=== PATIENT | male | born 1950 | race Hispanic/Latino ===

== ENCOUNTER 2020-12-11 11:17 | Inpatient (IN) | payer MEDICARE ==
[2020-12-11] MEDS ORDERED: Meclizine HCl 25 MG TAB PO PRN (20:47)
[2020-12-11] MEDS: valACYclovir 500 MG TAB PO SCH (21:01)
[2020-12-11] MEDS ORDERED: Carvedilol 6.25 MG TAB PO SCH (21:45)
[2020-12-12 00:09] LABS: SARS-CoV-2 NAA Rapid Test Not Detected (NotDetected)
[2020-12-12 06:21] LABS: #Basophils 0.1 thou/uL (0.0-0.2); #Eosinphils 0.2 thou/uL (0.0-0.7); #Lymphocytes 1.7 thou/uL (1.20-3.40); #Monocytes 0.8 thou/uL (0.11-0.59); #Neutrophils 6.8 thou/uL (1.40-6.50); %Basophils 0.9 % (0.0-1.0); %Eosinophils 1.8 % (0.0-10.0); %Lymphocytes 17.9 % (21.0-51.0); %Neutrophils 71.4 % (42.0-75.0); Hemoglobin 13.3 g/dL (14.0-18.0); Mean Corpuscular HGB CONC 31.3 g/dL (32.0-36.0); Mean Corpuscular Hemoglobin 29.3 pg (27.0-31.0); Mean Corpuscular Volume 93.7 fL (78.0-98.0); Mean Platelet Volume 8.1 fL (7.4-10.4); Platelet Count 357 thou/uL (130-400); RBC Distribution Width 13.4 % (11.5-14.5); Red Blood Cell (RBC) Count 4.54 mill/uL (4.70-6.10); White Blood Cell (WBC) Count 9.5 thou/uL (4.8-10.8)
[2020-12-12 06:40] LABS: ALT (SGPT) 119 U/L (8-55); AST (SGOT) 100 U/L (5-34); Albumin 3.2 g/dL (3.4-4.8); Alkaline Phosphatase 235 U/L (40-110); Anion Gap 13 mmol/L (10-20); BUN (Urea Nitrogen) 23 mg/dL (8.4-25.7); Bilirubin, Total 0.8 mg/dL (0.2-1.2); Calc. Creatinine Clearance 73 mL/min (70-130); Calcium 9.7 mg/dL (7.8-10.44); Carbon Dioxide 27 mmol/L (23-31); Chloride 101 mmol/L (98-107); Globulin 3.9 g/dL (2.4-3.5); Glucose 95 mg/dL (80-115); Potassium 4.5 mmol/L (3.5-5.1); Protein, Total 7.1 g/dL (5.8-8.1); Sodium 136 mmol/L (136-145)
[2020-12-12] MEDS: valACYclovir 500 MG TAB PO SCH ×3 (07:53→20:29)
[2020-12-12] MEDS: Carvedilol 6.25 MG TAB PO SCH ×2 (07:53→17:24)
[2020-12-12] MEDS: Aspirin 81 mg Enteric Coated Tablet PO SCH (07:54)
[2020-12-12] MEDS: Amlodipine 5 MG TAB PO SCH (07:54)
[2020-12-12] MEDS: Hydrochlorothiazide 25 MG TAB PO SCH (07:54)
[2020-12-12] MEDS: Clopidogrel Bisulfate 75 MG TAB PO SCH (07:54)
[2020-12-12] MEDS: Polyethylene Glycol 3350 17 GM Packet PO SCH (07:55)
[2020-12-12] MEDS ORDERED: hydrALAZINE 25 MG TAB PO PRN (12:34)
[2020-12-12] MEDS ORDERED: Carvedilol 6.25 MG TAB PO SCH (17:00)
[2020-12-12] MEDS: Lisinopril 10 MG TAB PO SCH (20:28)
[2020-12-13 06:35] LABS: ALT (SGPT) 111 U/L (8-55); AST (SGOT) 81 U/L (5-34); Alkaline Phosphatase 246 U/L (40-110); Bilirubin, Direct 0.4 mg/dL (0.1-0.3); Bilirubin, Total 0.7 mg/dL (0.2-1.2); CK (CPK) 1308 U/L (30-200); Protein, Total 6.7 g/dL (5.8-8.1)
[2020-12-13] MEDS: valACYclovir 500 MG TAB PO SCH ×3 (08:13→20:46)
[2020-12-13] MEDS: Polyethylene Glycol 3350 17 GM Packet PO SCH (08:13)
[2020-12-13] MEDS: Carvedilol 6.25 MG TAB PO SCH ×2 (08:14→17:12)
[2020-12-13] MEDS: Amlodipine 5 MG TAB PO SCH (08:15)
[2020-12-13] MEDS: Hydrochlorothiazide 25 MG TAB PO SCH (08:15)
[2020-12-13] MEDS: Aspirin 81 mg Enteric Coated Tablet PO SCH (08:15)
[2020-12-13] MEDS: Clopidogrel Bisulfate 75 MG TAB PO SCH (08:15)
[2020-12-13] MEDS ORDERED: Clopidogrel Bisulfate 75 MG TAB PO SCH (09:00)
[2020-12-13] MEDS ORDERED: Hydrochlorothiazide 25 MG TAB PO SCH (09:00)
[2020-12-13] MEDS ORDERED: Aspirin 81 mg Enteric Coated Tablet PO SCH (09:00)
[2020-12-13] MEDS ORDERED: Non-Formulary Item 1 EACH (Amlodipine [Norvasc] 10 MG Tab) PO SCH (09:00)
[2020-12-13] MEDS ORDERED: Polyethylene Glycol 3350 17 GM Packet PO SCH (09:00)
[2020-12-13] MEDS ORDERED: ISOSORBIDE MONONITRATE 60 MG PO SCH (09:00)
[2020-12-13 11:42] LABS: HBCM Index 0.04 S/CO (0-0.79); HBSAg Index 0.22 S/CO (0-0.99); Hep A IgM AB Non-Reactive (NonReactive); Hep A IgM S/CO 0.14 S/CO (0-0.79); Hep B Surf Ag Non-Reactive S/CO (NonReactive); Hep C IgG Ab Non-Reactive (NonReactive); Hep C Index 0.05 S/CO (0-0.79); Hepatitis B Core IgM Abs Non-Reactive (NonReactive)
[2020-12-13] MEDS: Lisinopril 10 MG TAB PO SCH (20:46)
[2020-12-14] MEDS: Amlodipine 5 MG TAB PO SCH (08:44)
[2020-12-14] MEDS: Clopidogrel Bisulfate 75 MG TAB PO SCH (08:45)
[2020-12-14] MEDS: valACYclovir 500 MG TAB PO SCH ×3 (08:45→20:43)
[2020-12-14] MEDS: Hydrochlorothiazide 25 MG TAB PO SCH (08:45)
[2020-12-14] MEDS: Carvedilol 6.25 MG TAB PO SCH ×2 (08:45→17:02)
[2020-12-14] MEDS: Aspirin 81 mg Enteric Coated Tablet PO SCH (08:46)
[2020-12-14] MEDS: Polyethylene Glycol 3350 17 GM Packet PO SCH (08:46)
[2020-12-14] MEDS: Lisinopril 10 MG TAB PO SCH (20:43)
[2020-12-15 05:52] LABS: ALT (SGPT) 88 U/L (8-55); AST (SGOT) 55 U/L (5-34); Albumin 3.2 g/dL (3.4-4.8); Alkaline Phosphatase 312 U/L (40-110); Bilirubin, Direct 0.3 mg/dL (0.1-0.3); Bilirubin, Total 0.5 mg/dL (0.2-1.2); Protein, Total 7.4 g/dL (5.8-8.1)
[2020-12-15] MEDS: Aspirin 81 mg Enteric Coated Tablet PO SCH (08:19)
[2020-12-15] MEDS: Clopidogrel Bisulfate 75 MG TAB PO SCH (08:19)
[2020-12-15] MEDS: Carvedilol 6.25 MG TAB PO SCH ×2 (08:20→16:10)
[2020-12-15] MEDS: Hydrochlorothiazide 25 MG TAB PO SCH (08:20)
[2020-12-15] MEDS: valACYclovir 500 MG TAB PO SCH ×3 (08:20→20:52)
[2020-12-15] MEDS: Amlodipine 5 MG TAB PO SCH (08:20)
[2020-12-15] MEDS: Polyethylene Glycol 3350 17 GM Packet PO SCH (08:21)
[2020-12-15] MEDS ORDERED: valACYclovir 500 MG TAB ONE ×3 (16:02→20:38)
[2020-12-15] MEDS: Lisinopril 10 MG TAB PO SCH (20:51)
[2020-12-16] MEDS: Carvedilol 6.25 MG TAB PO SCH ×2 (08:11→17:24)
[2020-12-16] MEDS: Hydrochlorothiazide 25 MG TAB PO SCH (08:11)
[2020-12-16] MEDS: Clopidogrel Bisulfate 75 MG TAB PO SCH (08:11)
[2020-12-16] MEDS: Amlodipine 5 MG TAB PO SCH (08:12)
[2020-12-16] MEDS: Polyethylene Glycol 3350 17 GM Packet PO SCH (08:13)
[2020-12-16] MEDS: Aspirin 81 mg Enteric Coated Tablet PO SCH (08:13)
[2020-12-16] MEDS ORDERED: valACYclovir 500 MG TAB ONE ×2 (08:16)
[2020-12-16] MEDS: valACYclovir 500 MG TAB PO SCH (08:18)
[2020-12-16] MEDS: Lisinopril 10 MG TAB PO SCH (20:40)
[2020-12-16] MEDS: Triamcinolone 0.1% Cream 15 GM TUBE TOP SCH (20:41)
[2020-12-17 06:51] LABS: ALT (SGPT) 59 U/L (8-55); AST (SGOT) 33 U/L (5-34); Albumin 3.3 g/dL (3.4-4.8); Alkaline Phosphatase 276 U/L (40-110); Bilirubin, Direct 0.2 mg/dL (0.1-0.3); Bilirubin, Total 0.4 mg/dL (0.2-1.2); CK (CPK) 296 U/L (30-200); Protein, Total 7.5 g/dL (5.8-8.1)
[2020-12-17] MEDS: Hydrochlorothiazide 25 MG TAB PO SCH (07:59)
[2020-12-17] MEDS: Carvedilol 6.25 MG TAB PO SCH ×2 (07:59→16:55)
[2020-12-17] MEDS: Clopidogrel Bisulfate 75 MG TAB PO SCH (07:59)
[2020-12-17] MEDS: Aspirin 81 mg Enteric Coated Tablet PO SCH (07:59)
[2020-12-17] MEDS: Polyethylene Glycol 3350 17 GM Packet PO SCH (08:00)
[2020-12-17] MEDS: Amlodipine 5 MG TAB PO SCH (08:00)
[2020-12-17] MEDS: Triamcinolone 0.1% Cream 15 GM TUBE TOP SCH ×2 (08:04→20:48)
[2020-12-17] MEDS: Lisinopril 10 MG TAB PO SCH (20:48)
[2020-12-18] MEDS: Aspirin 81 mg Enteric Coated Tablet PO SCH (08:23)
[2020-12-18] MEDS: Carvedilol 6.25 MG TAB PO SCH ×2 (08:23→17:27)
[2020-12-18] MEDS: Amlodipine 5 MG TAB PO SCH (08:23)
[2020-12-18] MEDS: Hydrochlorothiazide 25 MG TAB PO SCH (08:24)
[2020-12-18] MEDS: Triamcinolone 0.1% Cream 15 GM TUBE TOP SCH ×2 (08:24→20:41)
[2020-12-18] MEDS: Polyethylene Glycol 3350 17 GM Packet PO SCH (08:24)
[2020-12-18] MEDS: Clopidogrel Bisulfate 75 MG TAB PO SCH (08:24)
[2020-12-18] MEDS: Lisinopril 10 MG TAB PO SCH (20:40)
[2020-12-19] MEDS: Amlodipine 5 MG TAB PO SCH (09:08)
[2020-12-19] MEDS: Clopidogrel Bisulfate 75 MG TAB PO SCH (09:08)
[2020-12-19] MEDS: Carvedilol 6.25 MG TAB PO SCH ×2 (09:08→17:07)
[2020-12-19] MEDS: Aspirin 81 mg Enteric Coated Tablet PO SCH (09:08)
[2020-12-19] MEDS: Triamcinolone 0.1% Cream 15 GM TUBE TOP SCH ×2 (09:09→21:15)
[2020-12-19] MEDS: Polyethylene Glycol 3350 17 GM Packet PO SCH (09:09)
[2020-12-19] MEDS: Hydrochlorothiazide 25 MG TAB PO SCH (09:09)
[2020-12-19 17:23] LABS: SARS-CoV-2 PCR by NAA Not Detected (NotDetected)
[2020-12-19] MEDS: Lisinopril 10 MG TAB PO SCH (21:14)
[2020-12-20 07:03] LABS: ALT (SGPT) 44 U/L (8-55); AST (SGOT) 30 U/L (5-34); Albumin 3.2 g/dL (3.4-4.8); Alkaline Phosphatase 219 U/L (40-110); Anion Gap 12 mmol/L (10-20); BUN (Urea Nitrogen) 36 mg/dL (8.4-25.7); Bilirubin, Total 0.3 mg/dL (0.2-1.2); CK (CPK) 170 U/L (30-200); Calc. Creatinine Clearance 63 mL/min (70-130); Calcium 9.4 mg/dL (7.8-10.44); Carbon Dioxide 26 mmol/L (23-31); Chloride 104 mmol/L (98-107); Globulin 3.9 g/dL (2.4-3.5); Glucose 90 mg/dL (80-115); Potassium 4.5 mmol/L (3.5-5.1); Protein, Total 7.1 g/dL (5.8-8.1); Sodium 137 mmol/L (136-145)
[2020-12-20] MEDS: Aspirin 81 mg Enteric Coated Tablet PO SCH (09:28)
[2020-12-20] MEDS: Triamcinolone 0.1% Cream 15 GM TUBE TOP SCH ×2 (09:28→20:58)
[2020-12-20] MEDS: Polyethylene Glycol 3350 17 GM Packet PO SCH (09:28)
[2020-12-20] MEDS: Hydrochlorothiazide 25 MG TAB PO SCH (09:29)
[2020-12-20] MEDS: Amlodipine 5 MG TAB PO SCH (09:29)
[2020-12-20] MEDS: Carvedilol 6.25 MG TAB PO SCH ×2 (09:29→16:26)
[2020-12-20] MEDS: Clopidogrel Bisulfate 75 MG TAB PO SCH (09:29)
[2020-12-20] MEDS: Lisinopril 10 MG TAB PO SCH (20:58)
[2020-12-21] MEDS: Triamcinolone 0.1% Cream 15 GM TUBE TOP SCH ×2 (09:25→20:46)
[2020-12-21] MEDS: Clopidogrel Bisulfate 75 MG TAB PO SCH (09:25)
[2020-12-21] MEDS: Amlodipine 5 MG TAB PO SCH (09:25)
[2020-12-21] MEDS: Carvedilol 6.25 MG TAB PO SCH ×2 (09:25→16:43)
[2020-12-21] MEDS: Aspirin 81 mg Enteric Coated Tablet PO SCH (09:25)
[2020-12-21] MEDS: Polyethylene Glycol 3350 17 GM Packet PO SCH (09:25)
[2020-12-21] MEDS: Lisinopril 10 MG TAB PO SCH (20:45)
[2020-12-22 05:41] LABS: Anion Gap 13 mmol/L (10-20); BUN (Urea Nitrogen) 34 mg/dL (8.4-25.7); Calc. Creatinine Clearance 76 mL/min (70-130); Calcium 9.5 mg/dL (7.8-10.44); Carbon Dioxide 26 mmol/L (23-31); Chloride 105 mmol/L (98-107); Glucose 96 mg/dL (80-115); Potassium 4.5 mmol/L (3.5-5.1); Sodium 139 mmol/L (136-145)
[2020-12-22] MEDS: Aspirin 81 mg Enteric Coated Tablet PO SCH (09:47)
[2020-12-22] MEDS: Polyethylene Glycol 3350 17 GM Packet PO SCH (09:47)
[2020-12-22] MEDS: Carvedilol 6.25 MG TAB PO SCH ×2 (09:47→16:59)
[2020-12-22] MEDS: Amlodipine 5 MG TAB PO SCH (09:48)
[2020-12-22] MEDS: Clopidogrel Bisulfate 75 MG TAB PO SCH (09:48)
[2020-12-22] MEDS: Triamcinolone 0.1% Cream 15 GM TUBE TOP SCH ×2 (09:50→20:49)
[2020-12-22] MEDS: Lisinopril 10 MG TAB PO SCH (20:49)
[2020-12-23] MEDS: Triamcinolone 0.1% Cream 15 GM TUBE TOP SCH ×2 (10:03→20:24)
[2020-12-23] MEDS: Aspirin 81 mg Enteric Coated Tablet PO SCH (10:04)
[2020-12-23] MEDS: Amlodipine 5 MG TAB PO SCH (10:04)
[2020-12-23] MEDS: Polyethylene Glycol 3350 17 GM Packet PO SCH (10:04)
[2020-12-23] MEDS: Clopidogrel Bisulfate 75 MG TAB PO SCH (10:04)
[2020-12-23] MEDS: Carvedilol 6.25 MG TAB PO SCH ×2 (10:04→16:42)
[2020-12-23] MEDS: Lisinopril 10 MG TAB PO SCH (20:23)
[2020-12-24] MEDS: Clopidogrel Bisulfate 75 MG TAB PO SCH (08:53)
[2020-12-24] MEDS: Carvedilol 6.25 MG TAB PO SCH ×2 (08:54→17:13)
[2020-12-24] MEDS: Aspirin 81 mg Enteric Coated Tablet PO SCH (08:54)
[2020-12-24] MEDS: Amlodipine 5 MG TAB PO SCH (08:54)
[2020-12-24] MEDS: Acetaminophen 325 MG TAB PO PRN (08:55)
[2020-12-24] MEDS: Polyethylene Glycol 3350 17 GM Packet PO SCH (08:56)
[2020-12-24] MEDS: Lisinopril 10 MG TAB PO SCH (20:44)
[2020-12-25] MEDS: Polyethylene Glycol 3350 17 GM Packet PO SCH (10:52)
[2020-12-25] MEDS: Aspirin 81 mg Enteric Coated Tablet PO SCH (10:53)
[2020-12-25] MEDS: Carvedilol 6.25 MG TAB PO SCH ×2 (10:53→17:39)
[2020-12-25] MEDS: Amlodipine 5 MG TAB PO SCH (10:54)
[2020-12-25] MEDS: Clopidogrel Bisulfate 75 MG TAB PO SCH (10:54)
[2020-12-25] MEDS: Lisinopril 10 MG TAB PO SCH (20:46)
[2020-12-26] MEDS: Amlodipine 5 MG TAB PO SCH (08:51)
[2020-12-26] MEDS: Aspirin 81 mg Enteric Coated Tablet PO SCH (08:51)
[2020-12-26] MEDS: Polyethylene Glycol 3350 17 GM Packet PO SCH (08:51)
[2020-12-26] MEDS: Carvedilol 6.25 MG TAB PO SCH ×2 (08:51→17:03)
[2020-12-26] MEDS: Clopidogrel Bisulfate 75 MG TAB PO SCH (08:51)
[2020-12-26] MEDS: Lisinopril 10 MG TAB PO SCH (21:08)
[2020-12-26] MEDS: Acetaminophen 325 MG TAB PO PRN (21:09)
[2020-12-27] MEDS: Clopidogrel Bisulfate 75 MG TAB PO SCH (09:24)
[2020-12-27] MEDS: Aspirin 81 mg Enteric Coated Tablet PO SCH (09:24)
[2020-12-27] MEDS: Polyethylene Glycol 3350 17 GM Packet PO SCH (09:24)
[2020-12-27] MEDS: Acetaminophen 325 MG TAB PO PRN (09:24)
[2020-12-27] MEDS: Amlodipine 5 MG TAB PO SCH (09:24)
[2020-12-27] MEDS: Carvedilol 6.25 MG TAB PO SCH ×2 (09:24→17:27)
[2020-12-27 16:59] LABS: SARS-CoV-2 PCR by NAA Not Detected (NotDetected)
[2020-12-27] MEDS: Lisinopril 10 MG TAB PO SCH (20:23)
[2020-12-28] MEDS: Carvedilol 6.25 MG TAB PO SCH ×2 (08:55→16:50)
[2020-12-28] MEDS: Clopidogrel Bisulfate 75 MG TAB PO SCH (08:56)
[2020-12-28] MEDS: Polyethylene Glycol 3350 17 GM Packet PO SCH (08:56)
[2020-12-28] MEDS: Aspirin 81 mg Enteric Coated Tablet PO SCH (08:56)
[2020-12-28] MEDS: Amlodipine 5 MG TAB PO SCH (08:56)
[2020-12-28] MEDS: Lisinopril 10 MG TAB PO SCH (20:04)
[2020-12-29] MEDS: Carvedilol 6.25 MG TAB PO SCH ×2 (08:32→16:08)
[2020-12-29] MEDS: Clopidogrel Bisulfate 75 MG TAB PO SCH (08:32)
[2020-12-29] MEDS: Aspirin 81 mg Enteric Coated Tablet PO SCH (08:32)
[2020-12-29] MEDS: Amlodipine 5 MG TAB PO SCH (08:32)
[2020-12-29] MEDS: Polyethylene Glycol 3350 17 GM Packet PO SCH (08:33)
[2020-12-29] MEDS: Lisinopril 10 MG TAB PO SCH (20:21)
[2020-12-30] MEDS: Amlodipine 5 MG TAB PO SCH (09:12)
[2020-12-30] MEDS: Clopidogrel Bisulfate 75 MG TAB PO SCH (09:12)
[2020-12-30] MEDS: Aspirin 81 mg Enteric Coated Tablet PO SCH (09:12)
[2020-12-30] MEDS: Carvedilol 6.25 MG TAB PO SCH ×2 (09:12→17:03)
[2020-12-30] MEDS: Polyethylene Glycol 3350 17 GM Packet PO SCH (09:13)
[2020-12-30] MEDS: Lisinopril 10 MG TAB PO SCH (20:40)
[2020-12-31] MEDS: Polyethylene Glycol 3350 17 GM Packet PO SCH (10:21)
[2020-12-31] MEDS: Clopidogrel Bisulfate 75 MG TAB PO SCH (10:22)
[2020-12-31] MEDS: Aspirin 81 mg Enteric Coated Tablet PO SCH (10:22)
[2020-12-31] MEDS: Carvedilol 6.25 MG TAB PO SCH ×2 (10:22→17:06)
[2020-12-31] MEDS: Amlodipine 5 MG TAB PO SCH (10:22)
[2020-12-31] MEDS: Lisinopril 10 MG TAB PO SCH (20:33)
[2021-01-01] MEDS: Carvedilol 6.25 MG TAB PO SCH ×2 (08:58→16:55)
[2021-01-01] MEDS: Clopidogrel Bisulfate 75 MG TAB PO SCH (08:59)
[2021-01-01] MEDS: Amlodipine 5 MG TAB PO SCH (08:59)
[2021-01-01] MEDS: Aspirin 81 mg Enteric Coated Tablet PO SCH (08:59)
[2021-01-01] MEDS: Polyethylene Glycol 3350 17 GM Packet PO SCH (09:00)
[2021-01-01] MEDS: Lisinopril 10 MG TAB PO SCH (20:52)
[2021-01-02] MEDS: Carvedilol 6.25 MG TAB PO SCH ×2 (08:45→17:42)
[2021-01-02] MEDS: Clopidogrel Bisulfate 75 MG TAB PO SCH (08:46)
[2021-01-02] MEDS: Aspirin 81 mg Enteric Coated Tablet PO SCH (08:46)
[2021-01-02] MEDS: Amlodipine 5 MG TAB PO SCH (08:46)
[2021-01-02] MEDS: Polyethylene Glycol 3350 17 GM Packet PO SCH (08:47)
[2021-01-02] MEDS: Lisinopril 10 MG TAB PO SCH (20:43)
[2021-01-03] MEDS: Clopidogrel Bisulfate 75 MG TAB PO SCH (08:55)
[2021-01-03] MEDS: Amlodipine 5 MG TAB PO SCH (08:55)
[2021-01-03] MEDS: Carvedilol 6.25 MG TAB PO SCH ×2 (08:56→17:34)
[2021-01-03] MEDS: Aspirin 81 mg Enteric Coated Tablet PO SCH (08:56)
[2021-01-03] MEDS: Polyethylene Glycol 3350 17 GM Packet PO SCH (08:56)
[2021-01-03] MEDS: Lisinopril 10 MG TAB PO SCH (20:43)
[2021-01-04 06:54] LABS: Anion Gap 12 mmol/L (10-20); BUN (Urea Nitrogen) 20 mg/dL (8.4-25.7); Calc. Creatinine Clearance 91 mL/min (70-130); Calcium 9.2 mg/dL (7.8-10.44); Carbon Dioxide 24 mmol/L (23-31); Chloride 109 mmol/L (98-107); Glucose 86 mg/dL (80-115); Sodium 141 mmol/L (136-145)
[2021-01-04 07:25] LABS: #Basophils 0.1 thou/uL (0.0-0.2); #Eosinphils 0.2 thou/uL (0.0-0.7); #Lymphocytes 1.5 thou/uL (1.20-3.40); #Monocytes 0.6 thou/uL (0.11-0.59); #Neutrophils 5.6 thou/uL (1.40-6.50); %Basophils 1.3 % (0.0-1.0); %Monocytes 7.8 % (0.0-10.0); Hemoglobin 12.3 g/dL (14.0-18.0); Mean Corpuscular HGB CONC 31.2 g/dL (32.0-36.0); Mean Corpuscular Hemoglobin 29.5 pg (27.0-31.0); Mean Corpuscular Volume 94.7 fL (78.0-98.0); Mean Platelet Volume 7.5 fL (7.4-10.4); Platelet Count 306 thou/uL (130-400); RBC Distribution Width 13.4 % (11.5-14.5); Red Blood Cell (RBC) Count 4.17 mill/uL (4.70-6.10); White Blood Cell (WBC) Count 8.1 thou/uL (4.8-10.8)
[2021-01-04] MEDS: Amlodipine 5 MG TAB PO SCH (09:45)
[2021-01-04] MEDS: Aspirin 81 mg Enteric Coated Tablet PO SCH (09:45)
[2021-01-04] MEDS: Polyethylene Glycol 3350 17 GM Packet PO SCH (09:45)
[2021-01-04] MEDS: Clopidogrel Bisulfate 75 MG TAB PO SCH (09:45)
[2021-01-04] MEDS: Carvedilol 6.25 MG TAB PO SCH ×2 (09:45→17:04)
[2021-01-04] MEDS: Lisinopril 10 MG TAB PO SCH (20:12)
[2021-01-05] MEDS: Polyethylene Glycol 3350 17 GM Packet PO SCH (08:49)
[2021-01-05] MEDS: Amlodipine 5 MG TAB PO SCH (08:51)
[2021-01-05] MEDS: Carvedilol 6.25 MG TAB PO SCH ×2 (08:51→17:49)
[2021-01-05] MEDS: Clopidogrel Bisulfate 75 MG TAB PO SCH (08:51)
[2021-01-05] MEDS: Aspirin 81 mg Enteric Coated Tablet PO SCH (08:51)
[2021-01-05 18:15] LABS: SARS-CoV-2 PCR by NAA Not Detected (NotDetected)
[2021-01-05] MEDS: Lisinopril 10 MG TAB PO SCH (21:13)
[2021-01-06] MEDS: Carvedilol 6.25 MG TAB PO SCH ×2 (08:48→17:37)
[2021-01-06] MEDS: Amlodipine 5 MG TAB PO SCH (08:48)
[2021-01-06] MEDS: Clopidogrel Bisulfate 75 MG TAB PO SCH (08:49)
[2021-01-06] MEDS: Polyethylene Glycol 3350 17 GM Packet PO SCH (08:49)
[2021-01-06] MEDS: Aspirin 81 mg Enteric Coated Tablet PO SCH (08:49)
[2021-01-06] MEDS: Lisinopril 10 MG TAB PO SCH (20:10)
[2021-01-07] MEDS: Carvedilol 6.25 MG TAB PO SCH ×2 (08:55→16:40)
[2021-01-07] MEDS: Clopidogrel Bisulfate 75 MG TAB PO SCH (08:56)
[2021-01-07] MEDS: Amlodipine 5 MG TAB PO SCH (08:56)
[2021-01-07] MEDS: Polyethylene Glycol 3350 17 GM Packet PO SCH (08:56)
[2021-01-07] MEDS: Aspirin 81 mg Enteric Coated Tablet PO SCH (08:56)
[2021-01-07] MEDS: Lisinopril 10 MG TAB PO SCH (20:24)
[2021-01-08] MEDS: Carvedilol 6.25 MG TAB PO SCH ×2 (08:09→16:54)
[2021-01-08] MEDS: Aspirin 81 mg Enteric Coated Tablet PO SCH (08:09)
[2021-01-08] MEDS: Polyethylene Glycol 3350 17 GM Packet PO SCH (08:10)
[2021-01-08] MEDS: Amlodipine 5 MG TAB PO SCH (08:10)
[2021-01-08] MEDS: Clopidogrel Bisulfate 75 MG TAB PO SCH (08:10)
[2021-01-08] MEDS: Lisinopril 10 MG TAB PO SCH (20:32)
[2021-01-09] MEDS: Aspirin 81 mg Enteric Coated Tablet PO SCH (09:07)
[2021-01-09] MEDS: Polyethylene Glycol 3350 17 GM Packet PO SCH (09:07)
[2021-01-09] MEDS: Amlodipine 5 MG TAB PO SCH (09:07)
[2021-01-09] MEDS: Carvedilol 6.25 MG TAB PO SCH ×2 (09:07→16:38)
[2021-01-09] MEDS: Clopidogrel Bisulfate 75 MG TAB PO SCH (09:07)
[2021-01-09] MEDS: Lisinopril 10 MG TAB PO SCH (20:11)
[2021-01-10] MEDS: Clopidogrel Bisulfate 75 MG TAB PO SCH (09:00)
[2021-01-10] MEDS: Carvedilol 6.25 MG TAB PO SCH ×2 (09:18→17:50)
[2021-01-10] MEDS: Amlodipine 5 MG TAB PO SCH (09:18)
[2021-01-10] MEDS: Aspirin 81 mg Enteric Coated Tablet PO SCH (14:18)
[2021-01-10] MEDS: Polyethylene Glycol 3350 17 GM Packet PO SCH (14:19)
[2021-01-10] MEDS: Lisinopril 10 MG TAB PO SCH (20:45)
[2021-01-11] MEDS: Carvedilol 6.25 MG TAB PO SCH ×2 (08:24→17:09)
[2021-01-11] MEDS: Amlodipine 5 MG TAB PO SCH (08:24)
[2021-01-11] MEDS: Aspirin 81 mg Enteric Coated Tablet PO SCH (08:24)
[2021-01-11] MEDS: Clopidogrel Bisulfate 75 MG TAB PO SCH (08:24)
[2021-01-11] MEDS: Polyethylene Glycol 3350 17 GM Packet PO SCH (08:25)
[2021-01-11] MEDS: Lisinopril 10 MG TAB PO SCH (20:23)
[2021-01-12] MEDS: Amlodipine 5 MG TAB PO SCH (08:03)
[2021-01-12] MEDS: Carvedilol 6.25 MG TAB PO SCH ×2 (08:03→16:53)
[2021-01-12] MEDS: Clopidogrel Bisulfate 75 MG TAB PO SCH (08:07)
[2021-01-12] MEDS: Aspirin 81 mg Enteric Coated Tablet PO SCH (08:07)
[2021-01-12] MEDS: Polyethylene Glycol 3350 17 GM Packet PO SCH (08:09)
[2021-01-12] MEDS: Lisinopril 10 MG TAB PO SCH (20:21)
[2021-01-13] MEDS: Aspirin 81 mg Enteric Coated Tablet PO SCH (08:01)
[2021-01-13] MEDS: Carvedilol 6.25 MG TAB PO SCH ×2 (08:01→17:20)
[2021-01-13] MEDS: Amlodipine 5 MG TAB PO SCH (08:01)
[2021-01-13] MEDS: Clopidogrel Bisulfate 75 MG TAB PO SCH (08:01)
[2021-01-13] MEDS: Polyethylene Glycol 3350 17 GM Packet PO SCH (08:02)
[2021-01-13 15:00] LABS: SARS-CoV-2 PCR by NAA Not Detected (NotDetected)
[2021-01-13] MEDS: Lisinopril 10 MG TAB PO SCH (20:40)
[2021-01-14] MEDS: Amlodipine 5 MG TAB PO SCH (08:40)
[2021-01-14] MEDS: Carvedilol 6.25 MG TAB PO SCH ×2 (08:40→17:29)
[2021-01-14] MEDS: Clopidogrel Bisulfate 75 MG TAB PO SCH (08:40)
[2021-01-14] MEDS: Polyethylene Glycol 3350 17 GM Packet PO SCH (08:41)
[2021-01-14] MEDS: Aspirin 81 mg Enteric Coated Tablet PO SCH (08:41)
[2021-01-14] MEDS: Lisinopril 10 MG TAB PO SCH (20:43)
[2021-01-15] MEDS: Clopidogrel Bisulfate 75 MG TAB PO SCH (08:24)
[2021-01-15] MEDS: Polyethylene Glycol 3350 17 GM Packet PO SCH (08:24)
[2021-01-15] MEDS: Carvedilol 6.25 MG TAB PO SCH ×2 (08:24→17:08)
[2021-01-15] MEDS: Amlodipine 5 MG TAB PO SCH (08:24)
[2021-01-15] MEDS: Aspirin 81 mg Enteric Coated Tablet PO SCH (08:24)
[2021-01-15] MEDS ORDERED: Bisacodyl 10 MG SUPP PR PRN (09:15)
[2021-01-15] MEDS: Lisinopril 10 MG TAB PO SCH (21:38)
[2021-01-16] MEDS: Carvedilol 6.25 MG TAB PO SCH ×2 (08:55→16:51)
[2021-01-16] MEDS: Amlodipine 5 MG TAB PO SCH (08:55)
[2021-01-16] MEDS: Clopidogrel Bisulfate 75 MG TAB PO SCH (08:55)
[2021-01-16] MEDS: Aspirin 81 mg Enteric Coated Tablet PO SCH (08:55)
[2021-01-16] MEDS: Polyethylene Glycol 3350 17 GM Packet PO SCH (08:56)
[2021-01-16] MEDS: Lisinopril 10 MG TAB PO SCH (20:25)
[2021-01-17 06:43] LABS: #Basophils 0.1 thou/uL (0.0-0.2); #Eosinphils 0.2 thou/uL (0.0-0.7); #Lymphocytes 1.8 thou/uL (1.20-3.40); #Monocytes 0.6 thou/uL (0.11-0.59); #Neutrophils 5.6 thou/uL (1.40-6.50); %Basophils 0.8 % (0.0-1.0); %Eosinophils 2.1 % (0.0-10.0); %Lymphocytes 21.5 % (21.0-51.0); %Monocytes 7.7 % (0.0-10.0); %Neutrophils 67.9 % (42.0-75.0); Mean Corpuscular HGB CONC 31.1 g/dL (32.0-36.0); Mean Corpuscular Hemoglobin 29.3 pg (27.0-31.0); Mean Corpuscular Volume 94.2 fL (78.0-98.0); Mean Platelet Volume 7.4 fL (7.4-10.4); Platelet Count 272 thou/uL (130-400); RBC Distribution Width 13.1 % (11.5-14.5); Red Blood Cell (RBC) Count 4.09 mill/uL (4.70-6.10); White Blood Cell (WBC) Count 8.2 thou/uL (4.8-10.8)
[2021-01-17 06:54] LABS: Anion Gap 11 mmol/L (10-20); BUN (Urea Nitrogen) 14 mg/dL (8.4-25.7); Calc. Creatinine Clearance 101 mL/min (70-130); Calcium 8.9 mg/dL (7.8-10.44); Carbon Dioxide 26 mmol/L (23-31); Chloride 108 mmol/L (98-107); Glucose 89 mg/dL (80-115); Potassium 3.2 mmol/L (3.5-5.1); Sodium 142 mmol/L (136-145)
[2021-01-17] MEDS ORDERED: Potassium Chloride 20 MEQ TAB PO SCH (07:45)
[2021-01-17] MEDS: Clopidogrel Bisulfate 75 MG TAB PO SCH (08:14)
[2021-01-17] MEDS: Amlodipine 5 MG TAB PO SCH (08:14)
[2021-01-17] MEDS: Carvedilol 6.25 MG TAB PO SCH ×2 (08:14→16:56)
[2021-01-17] MEDS: Aspirin 81 mg Enteric Coated Tablet PO SCH (08:14)
[2021-01-17] MEDS: Polyethylene Glycol 3350 17 GM Packet PO SCH (08:15)
[2021-01-17] MEDS: Lisinopril 10 MG TAB PO SCH (20:21)
[2021-01-18 05:49] LABS: Anion Gap 10 mmol/L (10-20); BUN (Urea Nitrogen) 13 mg/dL (8.4-25.7); Calc. Creatinine Clearance 114 mL/min (70-130); Calcium 8.7 mg/dL (7.8-10.44); Carbon Dioxide 26 mmol/L (23-31); Chloride 110 mmol/L (98-107); Glucose 88 mg/dL (80-115); Potassium 3.4 mmol/L (3.5-5.1); Sodium 143 mmol/L (136-145)
[2021-01-18] MEDS: Carvedilol 6.25 MG TAB PO SCH ×2 (08:03→16:40)
[2021-01-18] MEDS: Aspirin 81 mg Enteric Coated Tablet PO SCH (08:03)
[2021-01-18] MEDS: Amlodipine 5 MG TAB PO SCH (08:06)
[2021-01-18] MEDS: Clopidogrel Bisulfate 75 MG TAB PO SCH (08:06)
[2021-01-18] MEDS: Polyethylene Glycol 3350 17 GM Packet PO SCH (08:07)
[2021-01-18] MEDS: Lisinopril 10 MG TAB PO SCH (20:24)
[2021-01-19] MEDS: Carvedilol 6.25 MG TAB PO SCH ×2 (08:04→16:27)
[2021-01-19] MEDS: Clopidogrel Bisulfate 75 MG TAB PO SCH (08:06)
[2021-01-19] MEDS: Aspirin 81 mg Enteric Coated Tablet PO SCH (08:07)
[2021-01-19] MEDS: Polyethylene Glycol 3350 17 GM Packet PO SCH (08:07)
[2021-01-19] MEDS: Amlodipine 5 MG TAB PO SCH (08:07)
[2021-01-19] MEDS: Lisinopril 10 MG TAB PO SCH (20:31)
[2021-01-20] MEDS: Amlodipine 5 MG TAB PO SCH (10:10)
[2021-01-20] MEDS: Aspirin 81 mg Enteric Coated Tablet PO SCH (10:11)
[2021-01-20] MEDS: Polyethylene Glycol 3350 17 GM Packet PO SCH (10:12)
[2021-01-20] MEDS: Carvedilol 6.25 MG TAB PO SCH ×2 (10:12→17:30)
[2021-01-20] MEDS: Clopidogrel Bisulfate 75 MG TAB PO SCH (10:12)
[2021-01-20] MEDS ORDERED: Potassium Chloride 20 MEQ TAB PO SCH (15:30)
[2021-01-20] MEDS: Lisinopril 10 MG TAB PO SCH (20:24)
[2021-01-21 06:33] LABS: Potassium 3.9 mmol/L (3.5-5.1)
[2021-01-21] MEDS: Carvedilol 6.25 MG TAB PO SCH ×2 (08:26→16:35)
[2021-01-21] MEDS: Aspirin 81 mg Enteric Coated Tablet PO SCH (08:27)
[2021-01-21] MEDS: Amlodipine 5 MG TAB PO SCH (08:27)
[2021-01-21] MEDS: Clopidogrel Bisulfate 75 MG TAB PO SCH (08:27)
[2021-01-21] MEDS: Polyethylene Glycol 3350 17 GM Packet PO SCH (08:28)
[2021-01-21 18:30] LABS: SARS-CoV-2 PCR by NAA Not Detected (NotDetected)
[2021-01-21] MEDS: Lisinopril 10 MG TAB PO SCH (20:50)
[2021-01-22] MEDS: Amlodipine 5 MG TAB PO SCH (08:40)
[2021-01-22] MEDS: Clopidogrel Bisulfate 75 MG TAB PO SCH (08:40)
[2021-01-22] MEDS: Carvedilol 6.25 MG TAB PO SCH ×2 (08:40→16:49)
[2021-01-22] MEDS: Aspirin 81 mg Enteric Coated Tablet PO SCH (08:40)
[2021-01-22] MEDS: Polyethylene Glycol 3350 17 GM Packet PO SCH (08:41)
[2021-01-22] MEDS: Lisinopril 10 MG TAB PO SCH (21:59)
[2021-01-23] MEDS: Carvedilol 6.25 MG TAB PO SCH ×2 (08:59→17:39)
[2021-01-23] MEDS: Polyethylene Glycol 3350 17 GM Packet PO SCH (09:00)
[2021-01-23] MEDS: Aspirin 81 mg Enteric Coated Tablet PO SCH (09:00)
[2021-01-23] MEDS: Clopidogrel Bisulfate 75 MG TAB PO SCH (09:00)
[2021-01-23] MEDS: Amlodipine 5 MG TAB PO SCH (09:00)
[2021-01-23] MEDS: Lisinopril 10 MG TAB PO SCH (20:36)
[2021-01-24] MEDS: Polyethylene Glycol 3350 17 GM Packet PO SCH (09:18)
[2021-01-24] MEDS: Carvedilol 6.25 MG TAB PO SCH ×2 (09:18→17:51)
[2021-01-24] MEDS: Clopidogrel Bisulfate 75 MG TAB PO SCH (09:18)
[2021-01-24] MEDS: Aspirin 81 mg Enteric Coated Tablet PO SCH (09:19)
[2021-01-24] MEDS: Amlodipine 5 MG TAB PO SCH (09:19)
[2021-01-24] MEDS: Lisinopril 10 MG TAB PO SCH (20:22)
[2021-01-25] MEDS: Carvedilol 6.25 MG TAB PO SCH ×2 (08:03→16:49)
[2021-01-25] MEDS: Clopidogrel Bisulfate 75 MG TAB PO SCH (08:04)
[2021-01-25] MEDS: Aspirin 81 mg Enteric Coated Tablet PO SCH (08:04)
[2021-01-25] MEDS: Amlodipine 5 MG TAB PO SCH (08:04)
[2021-01-25] MEDS: Polyethylene Glycol 3350 17 GM Packet PO SCH (08:05)
[2021-01-25] MEDS: Lisinopril 10 MG TAB PO SCH (20:37)
[2021-01-26 04:21] VITALS: BMI 28.8
[2021-01-26] MEDS: Carvedilol 6.25 MG TAB PO SCH ×2 (08:08→17:21)
[2021-01-26] MEDS: Amlodipine 5 MG TAB PO SCH (08:09)
[2021-01-26] MEDS: Aspirin 81 mg Enteric Coated Tablet PO SCH (08:09)
[2021-01-26] MEDS: Clopidogrel Bisulfate 75 MG TAB PO SCH (08:09)
[2021-01-26] MEDS: Polyethylene Glycol 3350 17 GM Packet PO SCH (08:10)
[2021-01-26] MEDS: Lisinopril 10 MG TAB PO SCH (20:33)
[2021-01-27] MEDS: Amlodipine 5 MG TAB PO SCH (09:18)
[2021-01-27] MEDS: Aspirin 81 mg Enteric Coated Tablet PO SCH (09:18)
[2021-01-27] MEDS: Carvedilol 6.25 MG TAB PO SCH ×2 (09:18→16:56)
[2021-01-27] MEDS: Polyethylene Glycol 3350 17 GM Packet PO SCH (09:18)
[2021-01-27] MEDS: Clopidogrel Bisulfate 75 MG TAB PO SCH (09:20)
[2021-01-27] MEDS: Milk Of Magnesia 30 ML UDCUP PO PRN (09:20)
[2021-01-27] MEDS: Lisinopril 10 MG TAB PO SCH (20:28)
[2021-01-28 06:32] LABS: #Basophils 0.1 thou/uL (0.0-0.2); #Eosinphils 0.2 thou/uL (0.0-0.7); #Lymphocytes 1.7 thou/uL (1.20-3.40); #Monocytes 0.7 thou/uL (0.11-0.59); #Neutrophils 5.1 thou/uL (1.40-6.50); %Basophils 1.1 % (0.0-1.0); %Eosinophils 2.8 % (0.0-10.0); %Lymphocytes 21.5 % (21.0-51.0); %Monocytes 8.8 % (0.0-10.0); %Neutrophils 65.8 % (42.0-75.0); Hemoglobin 12.8 g/dL (14.0-18.0); Mean Corpuscular HGB CONC 31.9 g/dL (32.0-36.0); Mean Corpuscular Hemoglobin 29.8 pg (27.0-31.0); Mean Corpuscular Volume 93.5 fL (78.0-98.0); Platelet Count 292 thou/uL (130-400); RBC Distribution Width 13.2 % (11.5-14.5); White Blood Cell (WBC) Count 7.8 thou/uL (4.8-10.8)
[2021-01-28 06:41] LABS: Anion Gap 12 mmol/L (10-20); BUN (Urea Nitrogen) 14 mg/dL (8.4-25.7); Calc. Creatinine Clearance 112 mL/min (70-130); Carbon Dioxide 25 mmol/L (23-31); Chloride 108 mmol/L (98-107); Glucose 83 mg/dL (80-115); Potassium 3.7 mmol/L (3.5-5.1); Sodium 141 mmol/L (136-145)
[2021-01-28] MEDS: Carvedilol 6.25 MG TAB PO SCH ×2 (08:32→16:23)
[2021-01-28] MEDS: Clopidogrel Bisulfate 75 MG TAB PO SCH (08:32)
[2021-01-28] MEDS: Aspirin 81 mg Enteric Coated Tablet PO SCH (08:32)
[2021-01-28] MEDS: Amlodipine 5 MG TAB PO SCH (08:32)
[2021-01-28] MEDS: Polyethylene Glycol 3350 17 GM Packet PO SCH (08:32)
[2021-01-28] MEDS: Milk Of Magnesia 30 ML UDCUP PO PRN ×2 (08:34→20:34)
[2021-01-28] MEDS: Lisinopril 10 MG TAB PO SCH (20:32)
[2021-01-29] MEDS: Carvedilol 6.25 MG TAB PO SCH ×2 (08:05→17:20)
[2021-01-29] MEDS: Amlodipine 5 MG TAB PO SCH (08:06)
[2021-01-29] MEDS: Aspirin 81 mg Enteric Coated Tablet PO SCH (08:06)
[2021-01-29] MEDS: Clopidogrel Bisulfate 75 MG TAB PO SCH (08:07)
[2021-01-29] MEDS: Polyethylene Glycol 3350 17 GM Packet PO SCH (08:07)
[2021-01-29 14:04] LABS: SARS-CoV-2 PCR by NAA Not Detected (NotDetected)
[2021-01-29] MEDS: Lisinopril 10 MG TAB PO SCH (20:27)
[2021-01-30] MEDS: Aspirin 81 mg Enteric Coated Tablet PO SCH (08:22)
[2021-01-30] MEDS: Carvedilol 6.25 MG TAB PO SCH ×2 (08:22→16:59)
[2021-01-30] MEDS: Amlodipine 5 MG TAB PO SCH (08:22)
[2021-01-30] MEDS: Polyethylene Glycol 3350 17 GM Packet PO SCH (08:23)
[2021-01-30] MEDS: Clopidogrel Bisulfate 75 MG TAB PO SCH (08:23)
[2021-01-30] MEDS: Lisinopril 10 MG TAB PO SCH (21:11)
[2021-01-31] MEDS: Amlodipine 5 MG TAB PO SCH (09:04)
[2021-01-31] MEDS: Clopidogrel Bisulfate 75 MG TAB PO SCH (09:05)
[2021-01-31] MEDS: Carvedilol 6.25 MG TAB PO SCH ×2 (09:05→17:18)
[2021-01-31] MEDS: Polyethylene Glycol 3350 17 GM Packet PO SCH (09:05)
[2021-01-31] MEDS: Aspirin 81 mg Enteric Coated Tablet PO SCH (09:05)
[2021-01-31] MEDS: Milk Of Magnesia 30 ML UDCUP PO PRN (09:07)
[2021-01-31] MEDS: Lisinopril 10 MG TAB PO SCH (20:39)
[2021-02-01] MEDS: Clopidogrel Bisulfate 75 MG TAB PO SCH (09:11)
[2021-02-01] MEDS: Amlodipine 5 MG TAB PO SCH (09:11)
[2021-02-01] MEDS: Aspirin 81 mg Enteric Coated Tablet PO SCH (09:11)
[2021-02-01] MEDS: Polyethylene Glycol 3350 17 GM Packet PO SCH (09:12)
[2021-02-01] MEDS: Carvedilol 6.25 MG TAB PO SCH ×2 (09:12→17:11)
[2021-02-01] MEDS: Lisinopril 10 MG TAB PO SCH (20:28)
[2021-02-02] MEDS: Amlodipine 5 MG TAB PO SCH (08:42)
[2021-02-02] MEDS: Carvedilol 6.25 MG TAB PO SCH ×2 (08:42→17:18)
[2021-02-02] MEDS: Clopidogrel Bisulfate 75 MG TAB PO SCH (08:42)
[2021-02-02] MEDS: Aspirin 81 mg Enteric Coated Tablet PO SCH (08:42)
[2021-02-02] MEDS: Polyethylene Glycol 3350 17 GM Packet PO SCH (08:43)
[2021-02-02] MEDS: Lisinopril 10 MG TAB PO SCH (20:51)
[2021-02-03] MEDS: Carvedilol 6.25 MG TAB PO SCH ×2 (08:14→16:34)
[2021-02-03] MEDS: Clopidogrel Bisulfate 75 MG TAB PO SCH (08:15)
[2021-02-03] MEDS: Amlodipine 5 MG TAB PO SCH (08:15)
[2021-02-03] MEDS: Aspirin 81 mg Enteric Coated Tablet PO SCH (08:15)
[2021-02-03] MEDS: Polyethylene Glycol 3350 17 GM Packet PO SCH (08:16)
[2021-02-03] MEDS: Milk Of Magnesia 30 ML UDCUP PO PRN (08:18)
[2021-02-03] MEDS: Lisinopril 10 MG TAB PO SCH (21:04)
[2021-02-04 06:39] LABS: Anion Gap 10 mmol/L (10-20); BUN (Urea Nitrogen) 14 mg/dL (8.4-25.7); Calc. Creatinine Clearance 109 mL/min (70-130); Carbon Dioxide 25 mmol/L (23-31); Chloride 108 mmol/L (98-107); Glucose 85 mg/dL (80-115); Potassium 3.8 mmol/L (3.5-5.1); Sodium 139 mmol/L (136-145)
[2021-02-04 06:46] LABS: #Basophils 0.1 thou/uL (0.0-0.2); #Eosinphils 0.2 thou/uL (0.0-0.7); #Lymphocytes 1.8 thou/uL (1.20-3.40); #Monocytes 0.7 thou/uL (0.11-0.59); #Neutrophils 5.5 thou/uL (1.40-6.50); %Basophils 1.3 % (0.0-1.0); %Eosinophils 2.8 % (0.0-10.0); %Lymphocytes 21.4 % (21.0-51.0); %Monocytes 8.8 % (0.0-10.0); %Neutrophils 65.8 % (42.0-75.0); Hemoglobin 12.6 g/dL (14.0-18.0); Mean Corpuscular HGB CONC 30.8 g/dL (32.0-36.0); Mean Corpuscular Hemoglobin 29.4 pg (27.0-31.0); Mean Corpuscular Volume 95.3 fL (78.0-98.0); Mean Platelet Volume 8.3 fL (7.4-10.4); Platelet Count 285 thou/uL (130-400); RBC Distribution Width 13.5 % (11.5-14.5); Red Blood Cell (RBC) Count 4.28 mill/uL (4.70-6.10); White Blood Cell (WBC) Count 8.4 thou/uL (4.8-10.8)
[2021-02-04] MEDS: Carvedilol 6.25 MG TAB PO SCH ×2 (09:03→16:58)
[2021-02-04] MEDS: Aspirin 81 mg Enteric Coated Tablet PO SCH (09:04)
[2021-02-04] MEDS: Amlodipine 5 MG TAB PO SCH (09:04)
[2021-02-04] MEDS: Clopidogrel Bisulfate 75 MG TAB PO SCH (09:05)
[2021-02-04] MEDS: Polyethylene Glycol 3350 17 GM Packet PO SCH (09:05)
[2021-02-04] MEDS: Lisinopril 10 MG TAB PO SCH (20:32)
[2021-02-05] MEDS: Polyethylene Glycol 3350 17 GM Packet PO SCH (09:16)
[2021-02-05] MEDS: Carvedilol 6.25 MG TAB PO SCH ×2 (09:17→17:16)
[2021-02-05] MEDS: Amlodipine 5 MG TAB PO SCH (09:18)
[2021-02-05] MEDS: Clopidogrel Bisulfate 75 MG TAB PO SCH (09:18)
[2021-02-05] MEDS: Aspirin 81 mg Enteric Coated Tablet PO SCH (09:18)
[2021-02-05] MEDS: Lisinopril 10 MG TAB PO SCH (21:20)
[2021-02-06] MEDS: Carvedilol 6.25 MG TAB PO SCH (08:10)
[2021-02-06 08:13] VITALS: BP 162/78
[2021-02-06] MEDS: Aspirin 81 mg Enteric Coated Tablet PO SCH (08:13)
[2021-02-06] MEDS: Clopidogrel Bisulfate 75 MG TAB PO SCH (08:13)
[2021-02-06] MEDS: Polyethylene Glycol 3350 17 GM Packet PO SCH (08:15)
[2021-02-06] MEDS: Amlodipine 5 MG TAB PO SCH (08:15)
[2021-02-06 08:58] VITALS: TEMP 98.3
== END 2021-02-06 14:20 | disposition home health service (06) | DRG 57 ==
LOC: NAV ACUTE 19:17
PROVIDERS: ADMIT Internal Medicine; ATTEND Internal Medicine
DX: I69.354 Hemiplegia and hemiparesis following cerebral infarction affecting left non-dominant side (principal); M62.82 Rhabdomyolysis; I50.32 Chronic diastolic (congestive) heart failure; Z96.652 Presence of left artificial knee joint; I69.322 Dysarthria following cerebral infarction; B02.9 Zoster without complications; L21.9 Seborrheic dermatitis, unspecified; D63.1 Anemia in chronic kidney disease; K59.00 Constipation, unspecified; E87.6 Hypokalemia; Z20.822 Contact with and (suspected) exposure to COVID-19; I11.0 Hypertensive heart disease with heart failure; R79.89 Other specified abnormal findings of blood chemistry
CPT/HCPCS: 36415; 80048; 80053; 80074; 80076; 82550; 83735; 83880; 84132; 85025; 97602; U0002; U0003; U0005